=== PATIENT | female | born 1985 ===

== ENCOUNTER 2020-07-16 23:39 | Emergency (ER) | payer MEDICAID ==
[~2020-07-16] VITALS: Ht 177.8 cm; Wt 77.7 kg
[2020-07-17] MEDS ORDERED: KETOROLAC 30 MG/1 ML IVPush ONE
[2020-07-17] MEDS ORDERED: ONDANSETRON 2MG/ML, 2ML IVPush ONE
[2020-07-17] MEDS ORDERED: SODIUM CHLORIDE 0.9% 1,000ML IVBOLUS ONE
[2020-07-17] MEDS ORDERED: SODIUM CHLORIDE FLUSH 10ML SYR IVF ONE
[2020-07-17] MEDS ORDERED: KETOROLAC 30 MG/1 ML ONE (00:01)
[2020-07-17] MEDS ORDERED: ONDANSETRON 2MG/ML, 2ML ONE (00:01)
[2020-07-17] MEDS ORDERED: MORPHINE SULFATE 4 MG/ML, 1ML ONE ×2 (00:01→01:08)
[2020-07-17 00:17] LABS: BASOPHILS % (AUTO) 1 % (0-1); EOSINOPHILS % (AUTO) 1 % (1-7); LYMPHOCYTES % (AUTO) 15 % (22-44); MEAN CORPUSCULAR HEMOGLOBIN 28.4 pg (27.0-34.8); MEAN CORPUSCULAR HGB CONC 33.3 g/dL (32.4-35.8); MEAN PLATELET VOLUME 8.8 fL (7.4-10.4); MONOCYTES % (AUTO) 5 % (2-9); NEUTROPHILS % (AUTO) 79 % (42-75); PLATELET COUNT 271 x10^3/uL (130-400); RED BLOOD COUNT 4.75 x10^6/uL (3.82-5.3); RED CELL DISTRIBUTION WIDTH 14.9 % (9.6-15.2)
[2020-07-17] MEDS: MORPHINE SULFATE 4 MG/ML, 1ML IVPush PRN ×2 (00:18→01:12)
[2020-07-17 00:19] LABS: MD NO
--- NOTE | 2020-07-17 00:23 | NUR ---
Patient presents to ER c/o low abd/pelvic pain with vag dc x2 days. Patient has also had chills and body aches x1 week. LMP x3 weeks ago. A0. Patient is in NAD. Respirations even and unlabored.
--- NOTE | 2020-07-17 00:28 | NUR ---
Meds admin per at bedside.
[2020-07-17 00:30] LABS: ALANINE AMINOTRANSFERASE 109 U/L (12-78); ALBUMIN 3.9 g/dL (3.4-5.0); ANION GAP 7 mmol/L (5-15); CALCIUM 8.3 mg/dL (8.5-10.1); CHLORIDE 112 mmol/L (98-107); CREATININE 0.77 mg/dL (0.55-1.02)
[2020-07-17 00:35] LABS: ALKALINE PHOSPHATASE 59 U/L (45-117); BILIRUBIN,TOTAL 0.8 mg/dL (0.2-1.0); TOTAL PROTEIN 7.5 g/dL (6.4-8.2)
[2020-07-17 00:50] LABS: MICROSCOPIC INDICATED
[2020-07-17] MEDS ORDERED: CEFTRIAXONE PMX 1GM/50ML 50 ML ONE (01:57)
[2020-07-17] MEDS ORDERED: CEFTRIAXONE PMX 1GM/50ML 50 ML IV ONE (02:00)
[2020-07-17 02:51] LABS: CLUE CELLS NONE SEEN (NONE SEEN); WET PREP WBCS FEW (FEW)
[2020-07-17 03:36] VITALS: BP 124/77
--- NOTE | 2020-07-17 03:36 | NUR ---
Discharge instructions given. All questions and concerns addressed. Patient ambulatory with a steady gait. Belongings with patient.
== END 2020-07-17 03:38 | disposition home or self-care (01) ==
LOC: ED 07-17 03:00
DX: N30.00 Acute cystitis without hematuria (principal); N83.291 Other ovarian cyst, right side; N89.8 Other specified noninflammatory disorders of vagina; N73.0 Acute parametritis and pelvic cellulitis; R93.5 Abnormal findings on diagnostic imaging of other abdominal regions, including retroperitoneum; R00.0 Tachycardia, unspecified; I10 Essential (primary) hypertension
CPT/HCPCS: 36415; 74176; 76830; 80053; 81001; 83690; 84703; 85025; 87077; 87086; 87186; 87210; 87491; 87591; 87808; 96365; 96375; 96376; 99285; J0696; J1885; J2270; J2405; J7030